=== PATIENT | female | born 1990 | race Caucasian/White ===

== ENCOUNTER 2017-11-11 18:58 | Inpatient (IN) | payer OTHER ==
[2017-11-11] MEDS ORDERED: 0.9 % SODIUM CHLORIDE 10 ML DISP.SYRIN. IV (19:15)
[2017-11-11 19:47] LABS: URINE HCG POC HCG NEGATIVE (Negative)
[2017-11-11 19:47] LABS: BILIRUBIN,URINE NEGATIVE (NEG); CLARITY,URINE CLOUDY; COLOR,URINE YELLOW; GLUCOSE,URINE NEGATIVE (NEG); NITRITE,URINE NEGATIVE (NEG); PROTEIN,URINE NEGATIVE (NEG-TRACE); UROBILINOGEN,URINE 0.2 mg/dL (0.2 mg/dL)
[2017-11-11 19:56] LABS: ADD MAN DIFF? NO
[2017-11-11] MEDS: ONDANSETRON PF 4 MG/2 ML VIAL. IV (19:56)
[2017-11-11] MEDS: KETOROLAC 30 MG/ML INJ. IV (19:56)
[2017-11-11 19:58] LABS: BACTERIA,URINE FEW /HPF (0-FEW); RBC,URINE 0 /HPF (0-2); SQUAMOUS EPITHELIAL CELL,UR MANY /LPF
[2017-11-11] MEDS ORDERED: CONTRAST GIVEN MC (20:00)
[2017-11-11 20:02] LABS: BASO # 0.1 x10^3/uL (0.0-0.2); BASO % 1 % (0-3); EOS # 0.8 x10^3/uL (0.0-0.7); EOS % 10 % (0-3); HEMATOCRIT 34.2 % (36.0-47.0); LYMPH # 2.6 x10^3/uL (1.0-4.8); LYMPH % 32 % (24-48); MEAN CORPUSCULAR HEMOGLOBIN 30 pg (25-35); MEAN CORPUSCULAR HGB CONC 35 g/dL (31-37); MEAN CORPUSCULAR VOLUME 86 fL (79-100); MONO # 0.6 x10^3/uL (0.0-1.1); MONO % 8 % (0-9); NEUT # 3.9 x10^3uL (1.8-7.7); NEUT % 49 % (31-73); PLATELET COUNT 198 x10^3/uL (140-400); RED BLOOD COUNT 3.96 x10^6/uL (3.50-5.40); RED CELL DISTRIBUTION WIDTH 12.7 % (11.5-14.5)
[2017-11-11] MEDS: IV NORMAL SALINE 1000ML BAG 1,000 ML IV ×2 (20:02→23:04)
[2017-11-11] MEDS: HYDROmorphone 2 MG/ML VIAL IV/SQ ×2 (20:07→21:00)
[2017-11-11 20:13] LABS: ANION GAP 8 (6-14); BLOOD UREA NITROGEN 13 mg/dL (7-20); CALCIUM 8.9 mg/dL (8.5-10.1); CARBON DIOXIDE 30 mmol/L (21-32); CHLORIDE 104 mmol/L (98-107); CREATININE 0.7 mg/dL (0.6-1.0); GLUCOSE 101 mg/dL (70-99); POTASSIUM 3.5 mmol/L (3.5-5.1); SODIUM 142 mmol/L (136-145)
[2017-11-11 20:19] LABS: ALBUMIN 3.3 g/dL (3.4-5.0); ALK PHOS 59 U/L (46-116); ALT (SGPT) 18 U/L (14-59); AST (SGOT) 18 U/L (15-37); DIRECT BILIRUBIN 0.1 mg/dL (0.0-0.2); TOTAL BILIRUBIN 0.3 mg/dL (0.2-1.0); TOTAL PROTEIN 6.6 g/dL (6.4-8.2)
[2017-11-11 20:29] LABS: LACTIC ACID 0.7 mmol/L (0.4-2.0)
[2017-11-11] MEDS: IOHEXOL 300 MG/ML 100ML VIAL. IV (20:33)
[2017-11-11] MEDS: CIPROFLOXACIN 400MG PREMIX 200 ML IV (20:52)
[2017-11-11] MEDS ORDERED: ONDANSETRON PF 4 MG/2 ML VIAL. IV (21:30)
[2017-11-11] MEDS: fentaNYL PF VIAL 100 MCG/2 ML VIAL IV (23:11)
[2017-11-12] MEDS: fentaNYL PF VIAL 100 MCG/2 ML VIAL IV ×4 (02:11→12:26)
[2017-11-12] MEDS: PHENAZOPYRIDINE 200 MG TABLET. PO (02:21)
[2017-11-12] MEDS ORDERED: ONDANSETRON ODT 4 MG TAB.RAPDIS. PO ×2 (02:30→09:00)
[2017-11-12] MEDS ORDERED: IBUPROFEN 600 MG TABLET. PO (06:00)
[2017-11-12] MEDS: IV NORMAL SALINE 1000ML BAG 1,000 ML IV (06:15)
[2017-11-12] MEDS: TAMSULOSIN 0.4 MG CAP.ER.24H. PO ×2 (08:31→08:39)
[2017-11-12] MEDS: CIPROFLOXACIN 400MG PREMIX 200 ML IV (08:32)
[2017-11-12] MEDS: DESVENLAFAXINE 25 MG TAB.ER.24H PO (08:32)
[2017-11-12] MEDS: oxyCODONE/APAP 5/325 1 TAB TABLET PO (09:44)
[2017-11-12] MEDS ORDERED: QUEtiapine 50 MG TAB.ER.24H. PO (21:00)
== END 2017-11-12 14:45 | disposition home or self-care (01) | DRG 951 ==
LOC: ER 18:58 → 5 NORTH 21:24
DX: Z76.5 Malingerer [conscious simulation] (principal); R10.9 Unspecified abdominal pain; Z79.899 Other long term (current) drug therapy; Z87.891 Personal history of nicotine dependence; Z91.040 Latex allergy status
CPT/HCPCS: 36415; 74177; 80048; 80076; 81001; 81025; 83605; 85025; 87040; 87086; 96361; 96374; 96375; 96376; 99285-25; J0744; J1170; J1885; J2060; J2405; J3010; J7030; Q9967